=== PATIENT | female | born 1990 | race American Indian/Alaskan Native ===

== ENCOUNTER 2021-03-13 15:13 | Emergency (ER) | payer MEDICAID, OTHER ==
[2021-03-13] MEDS ORDERED: LIDOCAINE VISCOUS 2% 15 ML ORAL LIQD MM ONE (18:35)
[2021-03-13] MEDS ORDERED: IBUPROFEN 800 MG TAB PO ONE (18:35)
--- NOTE | 2021-03-13 19:03 | Emergency Department Report ---
- General Chief Complaint: Upper Respiratory Infection Stated Complaint: COVID Symptoms Time Seen by Provider: 03/13/21 18:22 Source: patient Mode of arrival: Ambulatory Limitations: No Limitations - History of Present Illness Initial Comments: Patient is a 30-year-old female presents emergency room complaints of URI symptoms that began today. She has associated chills, generalized body aches, fever, sore throat, headache, dry cough. She denies any vomiting, diarrhea, ear pain, shortness of breath, chest pain, abdominal pain. She reports that she was in contact with someone who tested positive for COVID-19. She has not been vaccinated for COVID-19. No past medical history. No allergies to medications. - Related Data Previous Rx's Medication Instructions Recorded Last Taken Type Benzonatate [Tessalon Perles] 100 mg PO Q8HR PRN #12 capsule 03/13/21 Unknown Rx Ibuprofen [Motrin 600 MG tab] 600 mg PO Q8H PRN #20 tablet 03/13/21 Unknown Rx Nystas/Diphen/Xyl Visc/Mylanta 30 ml MM Q4H PRN #300 ml 03/13/21 Unknown Rx [Magic Mouthwash] guaiFENesin ER [Mucinex ER] 600 mg PO Q12H #14 tablet.er 03/13/21 Unknown Rx Allergies Allergy/AdvReac Type Severity Reaction Status Date / Time No Known Allergies Allergy Verified 03/13/21 16:23 ED Review of Systems ROS: Stated complaint: COVID Symptoms Other details as noted in HPI Comment: All other systems reviewed and negative ED Past Medical Hx - Past Medical History Previous Medical History?: No - Surgical History Past Surgical History?: No - Medications Home Medications: Home Medications Medication Instructions Recorded Confirmed Last Taken Type Benzonatate [Tessalon Perles] 100 mg PO Q8HR PRN #12 capsule 03/13/21 Unknown Rx Ibuprofen [Motrin 600 MG tab] 600 mg PO Q8H PRN #20 tablet 03/13/21 Unknown Rx Nystas/Diphen/Xyl Visc/Mylanta 30 ml MM Q4H PRN #300 ml 03/13/21 Unknown Rx [Magic Mouthwash] guaiFENesin ER [Mucinex ER] 600 mg PO Q12H #14 tablet.er 03/13/21 Unknown Rx ED Physical Exam - General Limitations: No Limitations General appearance: alert, in no apparent distress - Head Head exam: Present: atraumatic, normocephalic - Eye Eye exam: Present: normal appearance - ENT ENT exam: Present: mucous membranes moist, TM's normal bilaterally, normal external ear exam, other (mild posterior oropharynx erythema, no tonsillar hypertrophy or exudates, uvula is midline, no uvular edema or deviation, no trismus, no tongue elevation, no muffled voice) - Respiratory Respiratory exam: Present: normal lung sounds bilaterally. Absent: respiratory distress, wheezes, rales, rhonchi, stridor, chest wall tenderness, accessory m uscle use, decreased breath sounds, prolonged expiratory - Cardiovascular Cardiovascular Exam: Present: regular rate, normal rhythm, normal heart sounds. Absent: systolic murmur, diastolic murmur, rubs, gallop - Neurological Exam Neurological exam: Present: alert, oriented X3 - Psychiatric Psychiatric exam: Present: normal affect, normal mood - Skin Skin exam: Present: warm, dry, intact ED Course Vital Signs 03/13/21 16:21 Temperature 100.1 F H Pulse Rate 92 H Respiratory 18 Rate Blood Pressure 114/72 [Right] O2 Sat by Pulse 99 Oximetry ED Medical Decision Making - Medical Decision Making Patient is a 30-year-old female presents emergency room complaints of URI symptoms that began today. She has associated chills, generalized body aches, fever, sore throat, headache, dry cough. She denies any vomiting, diarrhea, ear pain, shortness of breath, chest pain, abdominal pain. She reports that she was in contact with someone who tested positive for COVID-19. She has not been vaccinated for COVID-19. No past medical history. No allergies to medications. Vitals with low-grade elevated temperature, otherwise vitals are stable. On exam mild posterior oropharynx erythema, no tonsillar hypertrophy or exudates, uvula is midline, no uvular edema or deviation, no trismus, no tongue elevation, no muffled voice, normal TMs and canals, breath sounds are clear bilaterally. Rapid strep is negative. Symptoms likely related to URI. Discussed supportive care and symptomatic treatment with patient and the importance of oral hydration. Advised patient Please take medications as prescribed as needed. Increase your fluid intake. Follow-up with your primary care doctor. Return to emergency room for new or worsening symptoms. Recommend outpatient COVID-19 testing and if positive will need to self quarantine for 10 days from onset of your symptoms. Critical care attestation.: If time is entered above; I have spent that time in minutes in the direct care of this critically ill patient, excluding procedure time. ED Disposition Clinical Impression: URI (upper respiratory infection) Qualifiers: URI type: unspecified URI Qualified Code(s): J06.9 - Acute upper respiratory infection, unspecified Disposition: HOME / SELF CARE / HOMELESS Is pt being admited?: No Does the pt Need Aspirin: No Condition: Stable Instructions: Viral Respiratory Infection Additional Instructions: Please take medications as prescribed as needed. Increase your fluid intake. Follow-up with your primary care doctor. Return to emergency room for new or worsening symptoms. Recommend outpatient COVID-19 testing and if positive will need to self quarantine for 10 days from onset of your symptoms. Prescriptions: Nystas/Diphen/Xyl Visc/Mylanta [Magic Mouthwash] 30 ml MM Q4H PRN #300 ml PRN Reason: sore throat Ibuprofen [Motrin 600 MG tab] 600 mg PO Q8H PRN #20 tablet PRN Reason: Pain guaiFENesin ER [Mucinex ER] 600 mg PO Q12H #14 tablet.er Benzonatate [Tessalon Perles] 100 mg PO Q8HR PRN #12 capsule PRN Reason: cough Referrals: PRIMARY MD KIKA [Primary Care Provider] - 3-5 Days ASIYA VILLA MD [Staff Physician] - 3-5 Days [facility] [Provider Group] - 3-5 Days Time of Disposition: 19:02 Print Language: SCOTTISH
[2021-03-14 01:16] VITALS: BP 120/74
== END 2021-03-13 20:08 | disposition home or self-care (01) ==
LOC: ED 15:13
DX: J06.9 Acute upper respiratory infection, unspecified (principal); Z79.899 Other long term (current) drug therapy
CPT/HCPCS: 87116; 87430; 99283

== ENCOUNTER 2021-10-20 20:21 | Emergency (ER) | payer OTHER ==
[2021-10-20 21:49] VITALS: BP 123/72
[2021-10-20 22:25] LABS: Hematocrit 45.4 % (30.3-42.9); Hemoglobin 14.5 gm/dl (10.1-14.3); Mean Corpuscular HGB Conc 32 % (30-34); Mean Corpuscular Volume 93 fl (79-97); Red Blood Count 4.88 M/mm3 (3.65-5.03); Red Cell Distribution Width 13.4 % (13.2-15.2)
[2021-10-20 23:04] LABS: Platelet Count 90 K/mm3 (140-440)
[2021-10-21 01:11] LABS: Anisocytosis 1+; Basophils % (Manual) 0 % (0.0-1.8); Eosinophils % (Manual) 0 % (0.0-4.3); Platelet Estimate Consistent w Auto; Total Cells Counted 100
== END 2021-10-21 16:30 | disposition left against medical advice (07) ==
LOC: ED 20:21
DX: M54.50 Low back pain, unspecified (principal); R11.10 Vomiting, unspecified; Z53.21 Procedure and treatment not carried out due to patient leaving prior to being seen by health care provider
CPT/HCPCS: 36415; 84702; 85007; 85025

== ENCOUNTER 2021-10-29 11:44 | Emergency (ER) | payer OTHER ==
[2021-10-29 12:35] VITALS: BP 125/66
[2021-10-29] MEDS ORDERED: IBUPROFEN 800 MG TAB PO ONE (14:28)
[2021-10-29] MEDS ORDERED: ONDANSETRON 4 MG ODT TAB PO ONE (14:29)
--- NOTE | 2021-10-29 14:37 | Emergency Department Report ---
ED General Adult HPI - General Chief complaint: Nausea/Vomiting/Diarrhea Stated complaint: NAUSEA/HEADACHE/SPOTTING Time Seen by Provider: 10/29/21 12:41 Source: patient Mode of arrival: Ambulatory Limitations: No Limitations - History of Present Illness Initial comments: 30-year-old female no significant past medical history reports to the ER with complaints of nausea and vomiting for about 1 week as well as frequent urination with slight dysuria. Patient reports that she was seen in urgent care giving steroids and and Bentyl. Patient reports that she was informed that she has a UTI however was not given any antibiotics. Patient also reports she was not getting any nausea medication for her nausea and vomiting. Patient reports no other acute symptoms at this time. Patient reports bladder pressure and discomfort. Severity scale (0 -10): 0 - Related Data Previous Rx's Medication Instructions Recorded Last Taken Type Benzonatate [Tessalon Perles] 100 mg PO Q8HR PRN #12 capsule 03/13/21 Unknown Rx Ibuprofen [Motrin 600 MG tab] 600 mg PO Q8H PRN #20 tablet 03/13/21 Unknown Rx Nystas/Diphen/Xyl Visc/Mylanta 30 ml MM Q4H PRN #300 ml 03/13/21 Unknown Rx [Magic Mouthwash] guaiFENesin ER [Mucinex ER] 600 mg PO Q12H #14 tablet.er 03/13/21 Unknown Rx Ondansetron [Zofran Odt] 4 mg PO BID PRN 4 Days #8 10/29/21 Unknown Rx tab.rapdis Sulfamethoxazole/Trimethoprim 1 each PO BID 7 Days #14 tab 10/29/21 Unknown Rx [Bactrim DS TAB] Allergies Allergy/AdvReac Type Severity Reaction Status Date / Time No Known Allergies Allergy Verified 10/29/21 12:45 ED Review of Systems ROS: Stated complaint: NAUSEA/HEADACHE/SPOTTING Other details as noted in HPI Comment: All other systems reviewed and negative Gastrointestinal: nausea, vomiting. denies: abdominal pain, diarrhea Genitourinary: dysuria. denies: discharge ED Past Medical Hx - Past Medical History Previous Medical History?: No - Social History Smoking Status: Never Smoker - Medications Home Medications: Home Medications Medication Instructions Recorded Confirmed Last Taken Type Benzonatate [Tessalon Perles] 100 mg PO Q8HR PRN #12 capsule 03/13/21 Unknown Rx Ibuprofen [Motrin 600 MG tab] 600 mg PO Q8H PRN #20 tablet 03/13/21 Unknown Rx Nystas/Diphen/Xyl Visc/Mylanta 30 ml MM Q4H PRN #300 ml 03/13/21 Unknown Rx [Magic Mouthwash] guaiFENesin ER [Mucinex ER] 600 mg PO Q12H #14 tablet.er 03/13/21 Unknown Rx Ondansetron [Zofran Odt] 4 mg PO BID PRN 4 Days #8 10/29/21 Unknown Rx tab.rapdis Sulfamethoxazole/Trimethoprim 1 each PO BID 7 Days #14 tab 10/29/21 Unknown Rx [Bactrim DS TAB] ED Physical Exam - General Limitations: No Limitations General appearance: alert, in no apparent distress - Head Head exam: Present: atraumatic, normocephalic - Eye Eye exam: Present: normal appearance - ENT ENT exam: Present: mucous membranes moist - Neck Neck exam: Present: normal inspection - Respiratory Respiratory exam: Present: normal lung sounds bilaterally. Absent: respiratory distress - Cardiovascular Cardiovascular Exam: Present: regular rate, normal rhythm. Absent: systolic murmur, diastolic murmur, rubs, gallop - GI/Abdominal GI/Abdominal exam: Present: soft, normal bowel sounds - Extremities Exam Extremities exam: Present: normal inspection - Back Exam Back exam: Present: normal inspection - Neurological Exam Neurological exam: Present: alert, oriented X3 - Psychiatric Psychiatric exam: Present: normal affect, normal mood - Skin Skin exam: Present: warm, dry, intact, normal color. Absent: rash ED Course Vital Signs 10/29/21 12:32 Temperature 99.6 F Pulse Rate 97 H Respiratory 20 Rate Blood Pressure 125/66 [Left] O2 Sat by Pulse 97 Oximetry ED Medical Decision Making - Medical Decision Making 30-year-old female reports of nausea vomiting with dysuria. As well as reports bladder pressure and discomfort. On physical exam no acute process noted. Vital signs stable. Patient received Zofran and Motrin while here in the ER. Patient reports a decrease in pain and nausea while in ER. Patient informed her urinary results. Patient to be started on oral antibiotics. Patient agrees with plan of care and verbalized understanding. Patient informed to follow her primary care as needed. Patient informed that if her symptoms were to get worse to report back to the ER. Patient stable for discharge home. Vital Signs 10/29/21 12:32 Temperature 99.6 F Pulse Rate 97 H Respiratory 20 Rate Blood Pressure 125/66 [Left] O2 Sat by Pulse 97 Oximetry Lab Results 10/29/21 Range/Units 13:23 Urine Color Silvia (Yellow) Urine Turbidity Hazy (Clear) Urine pH 7.0 (5.0-7.0) Ur Specific [place] 1.010 (1.003-1.030) Urine Protein 100 mg/dl (Negative) mg/dL Urine Glucose (UA) 3+ (Negative) mg/dL Urine Ketones Negative (Negative) mg/dL Urine Blood Large A (Negative) Urine Nitrite Negative (Negative) Urine Bilirubin Negative (Negative) Urine Urobilinogen 0.0 (<2.0) mg/dL Ur Leukocyte Esterase 1+ (Negative) Urine WBC (Auto) 39.0 H (0.0-6.0) /HPF Urine RBC (Auto) 164.0 (0.0-6.0) /HPF U Epithel Cells (Auto) > 182.0 H (0-13.0) /HPF Urine Mucus 3+ /HPF Critical care attestation.: If time is entered above; I have spent that time in minutes in the direct care of this critically ill patient, excluding procedure time. ED Disposition Clinical Impression: Acute UTI Nausea and vomiting Qualifiers: Vomiting type: unspecified Qualified Code(s): R11.2 - Nausea with vomiting, unspecified Disposition: 01 HOME / SELF CARE / HOMELESS Is pt being admited?: No Condition: Stable Instructions: Urinary Tract Infection, Adult, [id number], Nausea and Vomiting, Adult, Antibiotic Medicine, Adult Prescriptions: Sulfamethoxazole/Trimethoprim [Bactrim DS TAB] 1 each PO BID 7 Days #14 tab Ondansetron [Zofran Odt] 4 mg PO BID PRN 4 Days #8 tab.rapdis PRN Reason: nausea and vomiting Referrals: [facility] [place] [Outside] - 3-5 Days Time of Disposition: 14:53
[2021-10-29 14:42] LABS: Color,Urine AMBER (Yellow)
[2021-10-29 14:43] LABS: Bilirubin,Urine Negative (Negative)
[2021-10-29 14:44] LABS: Blood,Urine Large (Negative)
[2021-10-29 15:04] LABS: Mucus,Urine 3+ /HPF
== END 2021-10-29 18:28 | disposition home or self-care (01) ==
LOC: ED 11:44
DX: N39.0 Urinary tract infection, site not specified (principal); R11.2 Nausea with vomiting, unspecified
CPT/HCPCS: 81001; 87086; 99283; J3490; Q0162